=== PATIENT | male | born 1960 | race African-American/Black ===

== ENCOUNTER 2020-06-30 07:11 | Emergency (ER) | payer SELFPAY ==
[~2020-06-30] VITALS: Ht 180.3 cm; Wt 95.0 kg
[2020-06-30] MEDS ORDERED: LIDOCAINE HCL/PF 1% 10 MG/ML 5ML VIAL IJ ONE (08:15)
[2020-06-30] MEDS ORDERED: IBUP-2028 PO (08:55)
[2020-06-30 09:45] VITALS: BP 142/92
== END 2020-06-30 09:46 | disposition home or self-care (01) ==
LOC: ER 07:11
DX: S63.267A Dislocation of metacarpophalangeal joint of left little finger, initial encounter (principal); M25.572 Pain in left ankle and joints of left foot; W01.0XXA Fall on same level from slipping, tripping and stumbling without subsequent striking against object, initial encounter; Y93.89 Activity, other specified; Y92.89 Other specified places as the place of occurrence of the external cause
CPT/HCPCS: 26770; 73120; 73130; 73610; 99284; J3490; Z7610